=== PATIENT | female | born 1995 | race African-American/Black ===

== ENCOUNTER 2021-12-25 20:20 | Emergency (ER) | payer OTHER, SELFPAY ==
[2021-12-25 20:26] VITALS: BP 101/69; PULSE 89; RESP 16; TEMP 37; O2SAT 100
--- NOTE | 2021-12-25 20:55 | ED.URI ---
HPI - URI/Sore Throat General Chief Complaint: Upper Respiratory Infection Stated Complaint: sore throat, runny nose Time Seen by Provider: 12/25/21 20:29 History of Present Illness HPI Narrative: Patient is a 26-year-old female here for evaluation of upper respiratory infection symptoms for the past week. Patient states that she has had a sore throat and rhinorrhea, unrelieved by OTC medications. She did take a home COVID test immediately upon symptom onset that was negative. She has been tolerating her secretions but does note that it is painful when she swallows. she denies any cough, fevers, chills, drooling. Additionally reporting dysuria and malodorous urine for the past several days. She states that she has had history of UTIs and this feels similar. Denies any hematuria, back pain, vaginal discharge. No new sexual partners. Related Data Allergies Allergy/AdvReac Type Severity Reaction Status Date / Time No Known Allergies Allergy Verified 12/25/21 20:39 Review of Systems Review of Systems: Gen: Denies fevers or chills Eyes: Denies eye pain or visual change ENT: Reports sore throat and congestion. Respiratory: Denies shortness of breath or cough CV: Denies chest pain or palpitations GI: Denies abdominal pain nausea, emesis or diarrhea reports burning and malodorous urine. Denies urgency, frequency or hematuria Musculoskeletal: Denies back pain or muscle pain Neuro: Denies numbness, tingling, weakness or focal weakness Skin: Denies rash Except as documented, all other systems reviewed and negative Exam Narrative: APPEARANCE: Well appearing, no pain in distress, well-nourished. Head: Normocephalic and atraumatic. EYES: PERRLA/EOMI, conjunctivae clear NOSE: No nasal drainage EARS: External ear normal in appearance THROAT: Oropharynx is clear. Mucous membranes are moist. NECK: Supple. No adenopathy, no masses. No thyromegaly. RESPIRATORY: Airway patent, respirations nonlabored. Clear to auscultation bilaterally, no rales, rhonchi, wheezing. CARDIOVASCULAR: Regular rate and rhythm without murmurs, rubs, or gallops. ABDOMINAL: Normoactive bowel sounds. Soft, nontender, nondistended. No rebound tenderness or guarding. MUSCULOSKELETAL: Extremities are warm and well-perfused. Moves all extremities well. No edema. NEURO: Normal speech. No focal neurologic deficits. SKIN: Skin is warm and dry. No rashes. PSYCHIATRIC: Normal affect/mood. Course Vital Signs Vital signs: Vital Signs Temperature 98.6 F 12/25/21 20:26 Pulse Rate 89 12/25/21 20:26 Respiratory Rate 16 12/25/21 20:26 Blood Pressure 101/69 12/25/21 20:26 Pulse Oximetry 100 12/25/21 20:26 Oxygen Delivery Room Air 12/25/21 20:26 Temperature 98.6 F 12/25/21 20:26 Pulse Rate 85 12/25/21 23:14 Respiratory Rate 16 12/25/21 23:14 Blood Pressure 105/65 12/25/21 23:14 Pulse Oximetry 99 12/25/21 23:14 Oxygen Delivery Room Air 12/25/21 20:35 MDM - URI/Sore Throat MDM Narrative Medical decision making narrative: 26-year-old female here for evaluation of a sore throat, runny nose, urinary symptoms for the past few days. Here she is nontoxic-appearing with normal vital signs and is tolerating her secretions. No erythema of posterior oropharynx lymphadenopathy, strep and COVID test negative. Symptoms improved after medication in the ED. Likely upper respiratory infection. additionally, she was found to have a UTI with white blood cells, nitrates, leuks and bacteria. No back pain or fever to suggest pyelonephritis. test is negative, will treat with Macrobid as outpatient. She was given reasons to return to the ED and she voiced understanding. Lab Data Labs: Lab Results 12/25/21 12/25/21 12/25/21 Range/Units 21:25 21:25 21:25 Urine Color Yellow (Yellow) Urine Appearance Slightly cloudy (Clear) Urine pH 7.0 (5.0-9.0) Ur Specific [place] 1.025 (1.001-1.035) Urine Protein Negat
--- NOTE | 2021-12-25 21:38 | PC.NURSE ---
Unable to perform Rapid strep test due to no reagent 1. Called lab sent down to perform and Shyanne Reid was made aware.
[2021-12-25] MEDS: IBUPROFEN 600 MG TABLET PO (22:12)
[2021-12-25] MEDS: predniSONE 20 MG TABLET 40 MG PO (22:13)
[2021-12-25 22:21] LABS: SARS-CoV-2 RNA PCR Negative
[2021-12-25 22:36] LABS: Appearance Urine Slightly Cloudy (Clear); Bilirubin Urine Negative (Negative); Color Urine Yellow (Yellow); Glucose Urine UA Negative (Negative); Ketones Urine Negative (Negative); Leukocyte Esterase Ur Trace LEU/UL (Negative); Nitrate Urine Positive (Negative); Protein Urine Negative (Negative); Specific Grav Ur 1.025 (1.001-1.035); Urobilinogen Urine 0.2 mg/dL (<2.0)
[2021-12-25 22:38] LABS: Bacteria Urine 1+ /hpf; Mucus Urine Rare /lpf; Squamous Epithelial Cell Urine Few /hpf (Few); WBC Urine 16-20 /hpf
[2021-12-25 22:43] LABS: Add Urine Microscopic? YES; Blood Urine Trace (Negative)
[2021-12-25 23:14] VITALS: BP 105/65; PULSE 85; RESP 16; O2SAT 99
[2021-12-25 23:30] LABS: Pregnancy On Board Control Positive; Urine Pregnancy Test Negative
== END 2021-12-25 23:16 | disposition home or self-care (01) ==
PROVIDERS: Physician Assistant; Emergency Provider Emergency Medicine; PCP Pediatrics
DX: N39.0 Urinary tract infection, site not specified (principal); J06.9 Acute upper respiratory infection, unspecified; Z20.822 Contact with and (suspected) exposure to COVID-19
CPT/HCPCS: 36415; 81001; 81025; 87077; 87081; 87086; 87088; 87186; 87880; 99283; A9270; C9803; J7512; U0003; U0005

== ENCOUNTER 2022-01-18 18:43 | Emergency (ER) | payer OTHER, SELFPAY ==
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
[2022-01-18 18:44] VITALS: BP 122/84; PULSE 87; RESP 16; TEMP 36.6; O2SAT 99
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
[2022-01-18 19:40] VITALS: BP 105/74; PULSE 87; RESP 20; O2SAT 100
== END 2022-01-18 19:52 | disposition home or self-care (01) ==
PROVIDERS: Emergency Provider Emergency Medicine; PCP Family Medicine
DX: S46.812A Strain of other muscles, fascia and tendons at shoulder and upper arm level, left arm, initial encounter (principal); V47.5XXA Car driver injured in collision with fixed or stationary object in traffic accident, initial encounter
CPT/HCPCS: 73030; 99283; A4565

== ENCOUNTER 2023-01-19 11:15 | Emergency (ER) | payer OTHER, SELFPAY ==
--- NOTE | ~2023-01-19 | XR_ITS ---
XR shoulder RT min 2V DATE: 01/19/2023 12:23 INDICATION: Pain when moving shoulder. No injury. TECHNIQUE: 4 views COMPARISON: None FINDINGS: Elongated right and left C7 transverse processes. Levoscoliosis of the upper thoracic spine. Normal alignment at the acromioclavicular and glenohumeral joints. No fracture, dislocation, perioste al reaction or bone destruction or abnormal soft tissue calcification of the right shoulder. IMPRESSION: Negative right shoulder Elongated right and left C7 transverse processes Reviewed, dictated and finalized at location B.
--- NOTE | ~2023-01-19 | XR_ITS ---
XR finger 2nd RT min 2V DATE: 01/19/2023 12:23 INDICATION: Right second digit pain TECHNIQUE: 3 views COMPARISON: None FINDINGS: No fracture or dislocation, periosteal reaction or bone destruction, erosive change or sign ificant joint space narrowing. No radiopaque soft tissue foreign body or subcutaneous emphysema. IMPRESSION: Negative Reviewed, dictated and finalized at location B. IMPRESSION: Negative
[2023-01-19 11:25] VITALS: BP 102/70; PULSE 76; RESP 18; TEMP 36.8; O2SAT 100
--- NOTE | 2023-01-19 12:11 | PC.NURSE ---
pt taken to xray at this time
--- NOTE | 2023-01-19 12:21 | PC.NURSE ---
pt returned to room 18 from xray at this time
--- NOTE | 2023-01-19 13:52 | ED.UPPEXIN ---
HPI - Extremity Injury (Upper) General Chief Complaint: Extremity Injury, Upper Stated Complaint: R pointer finger pain, R shoulder pain Time Seen by Provider: 01/19/23 12:24 Source: patient Mode of arrival: ambulatory Limitations: no limitations History of Present Illness HPI narrative: This is a 27-year-old female that presents to the emergency department for right shoulder pain and right second finger pain. Both of these have been ongoing for several months. She takes [id number] pain medication with some relief. She has not been evaluated for this yet. There was no known injury or trauma. Reports decreased ROM in the right 2nd finger and feels like it catches. 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 Denies fever, erythema, edema, decreased range of motion in the shoulder, or numbness. Related Data Allergies Allergy/AdvReac Type Severity Reaction Status Date / Time No Known Allergies Allergy Verified 12/25/21 20:39 Review of Systems Review of Systems: CONSTITUTIONAL: Denies fever SKIN: Denies rash MUSCULOSKELETAL: Reports joint pain, and myalgia. NEUROLOGIC: Denies numbness, or weakness. All systems reviewed & are unremarkable except as noted in HPI and below Exam Narrative: GENERAL: Well-appearing, well-nourished, and in no acute distress. HEAD: Normocephalic, atraumatic. EYES: EOMI. CHEST: Clear to auscultation. No respiratory distress. No wheezes rales or rhonchi HEART: Regular rate and rhythm. No murmur heard. Normal peripheral pulses. EXTREMITIES: Normal range of motion, except decreased active ROM in the right 2nd finger due to pain. No edema, obvious deformity or erythema. Normal radial pulse. Normal sensation. Normal capillary refill SKIN: Warm, dry, no rash. NEURO: No focal deficits. Alert and oriented x3. PSYCH: Normal mood and affect Course Course Emergency Course: Patient was updated on work-up and agrees with plan of care Vital Signs Vital signs: Vital Signs Temperature 98.3 F 01/19/23 11:25 Pulse Rate 76 01/19/23 11:25 Respiratory Rate 18 01/19/23 11:25 Blood Pressure 102/70 01/19/23 11:25 Pulse Oximetry 100 01/19/23 11:25 Temperature 98.3 F 01/19/23 11:25 Pulse Rate 76 01/19/23 11:25 Respiratory Rate 18 01/19/23 11:25 Blood Pressure 102/70 01/19/23 11:25 Pulse Oximetry 100 01/19/23 11:25 MDM - Extremity Injury (Upper) MDM Narrative Medical decision making narrative: Patient presents to the ER for right shoulder pain ongoing over the last several months. No recent injury or trauma. She is neurovascularly intact. Right shoulder x-ray without acute osseous abnormalities. Patient also reporting some right second finger pain. Reports decreased active range of motion due to pain. Reports feelings of it catching when she bends it. No injury in the finger. Right second finger x-ray without acute osseous abnormalities. Patient was placed in a splint for comfort. Was instructed to follow-up with orthopedics for her shoulder and hand surgery for her finger. She was given warnings to return to the ER Differential Diagnosis Differential diagnosis: Likely finger sprain and other (shoulder sprain, rotator cuff pathology) Imaging Data Radiologist's impression: ITS Impressions Finger X-Ray 01/19/23 12:24 IMPRESSION: Negative Shoulder X-Ray 01/19/23 12:24 IMPRESSION: Negative right shoulder Elongated right and left C7 transverse processes Critical Care Time Critical Care Time Critical Care Time: No Discharge Plan Discharge Clinical Impression: Finger pain, right Chronic shoulder pain Qualifiers: Laterality: right Qualified Code(s): M25.511 - Pain in right shoulder Patient Disposition: Home, Self-Care Condition: Stable Instructions: Arthralgia (ED), Shoulder Pain (ED) Additional Instructions: Return to the ER if you experience fever, weakness, numbness, redn
[2023-01-19 14:05] VITALS: BP 109/66; PULSE 72; RESP 18; O2SAT 100
== END 2023-01-19 14:05 | disposition home or self-care (01) ==
PROVIDERS: Emergency Provider Physician Assistant; PCP Family Medicine
DX: M25.511 Pain in right shoulder (principal); M79.644 Pain in right finger(s)
CPT/HCPCS: 29130; 73030; 73140; 99284

== ENCOUNTER 2023-02-25 13:51 | Emergency (ER) | payer OTHER, SELFPAY ==
[2023-02-25 14:05] VITALS: BP 112/58; PULSE 80; RESP 18; TEMP 36.7; O2SAT 99
[2023-02-25 14:28] VITALS: BP 110/68; PULSE 77; RESP 17; O2SAT 100
--- NOTE | 2023-02-25 14:52 | ED.PREGNANCY ---
HPI - General Chief complaint: Vaginal Bleeding Stated complaint: vaginal bleeding Time Seen by Provider: 02/25/23 14:19 Source: patient Mode of arrival: ambulatory Limitations: no limitations History of Present Illness HPI Narrative: Patient is a 27-year-old female presents the ED with report of vaginal bleeding. Patient reports she had an elective 3 weeks ago. She started her first menstrual cycle after the over this past weekend. She states the bleeding was light at first but became heavier today. She notes she went through 1-2 pads per hour today. She became concerned and prompted here. Patient sees an OBGYN in [place], Dr. Amor. She has not tried contacting him. She denies any dizziness, lightheadedness, abdominal pain aside from mild cramping, nausea, vomiting, syncope, fevers. Related Data Allergies Allergy/AdvReac Type Severity Reaction Status Date / Time No Known Allergies Allergy Verified 01/20/23 09:08 Review of Systems Review of Systems: CONSTITUTIONAL: Denies fever, chills, or sweats. CARDIOVASCULAR: Denies chest pain. RESPIRATORY: Denies dyspnea. GASTROINTESTINAL: See HPI. GENITOURINARY: See HPI. SKIN: Denies rash or itching. NEUROLOGIC: Denies dizziness, lightheadedness, headache, numbness, or weakness. All systems reviewed & are unremarkable except as noted in HPI and below PMFSH Social History Social History Smoking status: Never smoker Exam Narrative: GENERAL: Well appearing, well-nourished, non-toxic, in no acute distress. HEAD: Normocephalic, atraumatic. NECK: Supple. No adenopathy, no masses. RESPIRATORY: Airway patent, respirations nonlabored. Clear to auscultation bilaterally, no rales, rhonchi, wheezing. CARDIOVASCULAR: Regular rate and rhythm without murmurs, rubs, or gallops. Radial pulses 2+ and equal bilaterally. ABDOMINAL: Soft, no significant tenderness throughout abdomen, nondistended, no hepatosplenomegaly. Normoactive BS. PELVIC: Normal external genitalia. Moderate amount of bright red vaginal bleeding present in vaginal vault. Able to clear with several long Q-tips. Cervix appears normal. No evidence of retained products or tissue coming from cervical os. No evidence of hemorrhage or pooling of fluid. No significant CMT. MUSCULOSKELETAL: Moves all extremities. Strength/ROM intact without gross deformities. SKIN: Warm, dry, normal color. No rashes. NEURO: A&O X3. Speech clear. Cranial nerves II-XII grossly intact. Steady gait. No ataxic movements. PSYCHIATRIC: Appropriate mood and affect. Normal interaction. Course Vital Signs Vital signs: Vital Signs Temperature 98.1 F 02/25/23 14:05 Pulse Rate 80 02/25/23 14:05 Respiratory Rate 18 02/25/23 14:05 Blood Pressure 112/58 L 02/25/23 14:05 Pulse Oximetry 99 02/25/23 14:05 Temperature 98.1 F 02/25/23 14:05 Pulse Rate 82 02/25/23 17:00 Respiratory Rate 17 02/25/23 17:00 Blood Pressure 101/70 02/25/23 17:00 Pulse Oximetry 100 02/25/23 17:00 MDM - OB/Uterine Contractions MDM Narrative Medical decision making narrative: Patient presented to ED with abnormal heavy bleeding, history of elective medical 3 weeks ago. Patient's vital stable upon arrival. She is not in any distress. No significant pain noted. CBC with stable H&H, hemoglobin 12.8. UA with lots of blood, 6-10 WBC, no urine bacteria seen. Sent for culture. Patient denying urinary symptoms. Likely contamination. Pelvic exam did show a moderate amount of vaginal bleeding in vaginal vault, no significant clots. Able to clear bleeding with long Q-tips. No evidence of hemorrhage or pooling of fluid. Discussed reassuring labs and exam with patient. She is seen by Dr. Schroeder, an FOOD AND BEVERAGE LEAD at [facility]. I discussed case with Dr. Schroeder, advised can start patient on oral BCP today and have her f/u in office.
[2023-02-25 15:29] LABS: Basophils Percent Auto 0.5 % (0.2-1.2); Eosinophils Absolute Auto 0.1 K/mm3 (0-0.3); Eosinophils Percent Auto 1.9 % (0-4.4); Hematocrit 40.6 % (37.0-47.0); Hemoglobin 12.8 g/dL (12.0-15.0); Immature Granulocyte Absolute 0.02 K/mm3 (0.00-0.031); Immature Granulocyte Percent A 0.3 % (0-0.5); Lymphocytes Absolute Auto 2.23 K/mm3 (0.9-3.2); Lymphocytes Percent Auto 35.8 % (18.3-44.2); Mean Corpuscular HGB Conc 31.5 g/dl (32-36); Mean Corpuscular Hemoglobin 27.9 pg (26-34); Mean Corpuscular Volume 88.6 fl (80-100); Monocytes Absolute Auto 0.5 K/mm3 (0.1-0.6); Monocytes Percent Auto 8.7 % (2.6-8.5); Neutrophils Absolute Auto 3.3 K/mm3 (1.3-6.7); Neutrophils Percent Auto 52.8 % (45.5-73.1); Platelet Count Result 284 k/mm3 (150-375); Red Blood Count 4.58 M/mm3 (4.2-5.4); Red Cell Distribution Width 13.7 % (11.5-14.5); White Blood Count 6.2 K/mm3 (4.5-10.0)
[2023-02-25 15:33] LABS: Appearance Urine Cloudy (Clear); Bilirubin Urine Negative (Negative); Blood Urine 3+ (Negative); Color Urine Red (Yellow); Glucose Urine UA Negative (Negative); Ketones Urine Negative (Negative); Leukocyte Esterase Ur Negative LEU/UL (Negative); Nitrate Urine Negative (Negative); Protein Urine 1+ mg/dL (Negative); pH Urine 8.5 (5.0-9.0)
[2023-02-25 15:35] LABS: Bacteria Urine None Seen /hpf; Non Pathogenic Casts 0-2; RBC Urine >100 /hpf (0-2); Squamous Epithelial Cell Urine Occasional /hpf (Few)
[2023-02-25 15:54] LABS: Add Urine Microscopic? YES
[2023-02-25 17:00] VITALS: BP 101/70; PULSE 82; RESP 17; O2SAT 100
== END 2023-02-25 17:01 | disposition home or self-care (01) ==
PROVIDERS: Emergency Provider Physician Assistant; PCP Family Medicine
DX: N93.8 Other specified abnormal uterine and vaginal bleeding (principal)
CPT/HCPCS: 36415; 81001; 81025; 85025; 87077; 87086; 87088; 99284

== ENCOUNTER 2023-07-29 12:14 | Outpatient (CLI) | payer OTHER, SELFPAY ==
--- NOTE | 2023-07-29 | ECG_ITS ---
Measurements Intervals [place] Rate: 78 P: 65 [place]: 164 QRS: 27 QRSD: 93 T: 39 QT: 360 QTc: 412 Interpretive Statements SINUS RHYTHM WITH MARKED SINUS ARRHYTHMIA BASELINE ARTIFACT- III NORMAL ECG NO PREVIOUS ECG AVAILABLE FOR COMPARISON Electronically Signed On 07-29-2023 13:31:20 SINGLE NEEDLE OPERATOR by Santino Hsu D.O.
--- NOTE | ~2023-07-29 | XR_ITS ---
EXAMINATION: XR chest 2V DATE: 07/29/2023 13:20 INDICATION: Smoking. Preop. TECHNIQUE: Frontal and lateral views of the chest were obtained. COMPARISON: None. FINDINGS: There is no pneumonia, pleural effusion, or pneumothorax. The heart size is normal. IMPRESSION: 1. No acute cardiopulmonary disease. Reviewed, dictated and finalized at location E. E M ASSEMBLER
== END 2023-07-29 12:15 | disposition home or self-care (01) ==
LOC: ANHLAB 13:02 → ANHIMG 13:04
PROVIDERS: PCP Family Medicine
DX: Z01.818 Encounter for other preprocedural examination (principal); R94.31 Abnormal electrocardiogram [ECG] [EKG]
CPT/HCPCS: 71046; 93005

== ENCOUNTER 2023-12-11 10:34 | Emergency (ER) | payer OTHER, SELFPAY ==
[2023-12-11 10:35] VITALS: BP 112/74; PULSE 77; RESP 16; TEMP 36.4; O2SAT 99
[2023-12-11 11:10] LABS: Appearance Urine Cloudy (Clear); Bacteria Urine 3+ /hpf; Bilirubin Urine Negative (Negative); Blood Urine Trace (Negative); Color Urine Yellow (Yellow); Glucose Urine UA Negative (Negative); Ketones Urine Negative (Negative); Leukocyte Esterase Ur 2+ LEU/UL (Negative); Nitrate Urine Positive (Negative); Non Pathogenic Casts 0-2; Protein Urine Negative (Negative); Specific Grav Ur 1.025 (1.001-1.035); Squamous Epithelial Cell Urine Moderate /hpf (Few); WBC Urine 51-100 /hpf (0-3)
[2023-12-11 11:23] LABS: Add Urine Microscopic? YES
--- NOTE | 2023-12-11 12:01 | ED.FEMALEGU ---
HPI - Female Genitourinary General Chief complaint: Urogenital-Female Stated complaint: uti Time Seen by Provider: 12/11/23 10:46 History of Present Illness HPI Narrative: 28-year-old female presents to the emergency room for evaluation of dysuria and urinary frequency. Denies abdominal pain, back pain or flank pain or fevers. States has had symptoms for 7 days. Related Data Allergies Allergy/AdvReac Type Severity Reaction Status Date / Time No Known Allergies Allergy Verified 08/07/23 07:41 Review of Systems Review of Systems: ROS unremarkable except for noted in HPI PMFSH Social History Social History Smoking status: Never smoker Exam Narrative: GENERAL: Well-appearing, well-nourished, no physical limitations, and in no acute distress. HEAD: Normocephalic, atraumatic. EYES: Conjunctivae normal, PERRLA and EOMI. CHEST: Clear to auscultation. No respiratory distress. No wheezes rales or rhonchi. HEART: Regular rate and rhythm. No murmur heard. Normal peripheral pulses. ABDOMEN: Soft, nontender, nondistended, normal active bowel sounds. BACK: No CVA tenderness; EXTREMITIES: Normal range of motion. No edema. No clubbing or cyanosis SKIN: Warm, dry, no rash. No noted wounds NEURO: No focal deficits. Alert and oriented x3. MAEW. CN's II-XI intact bilaterally, normal gait PSYCH: Cooperative. Normal mood and affect. Course Vital Signs Vital signs: Vital Signs Temperature 36.4 C 12/11/23 10:35 Pulse Rate 77 12/11/23 10:35 Respiratory Rate 16 12/11/23 10:35 Blood Pressure 112/74 12/11/23 10:35 Pulse Oximetry 99 12/11/23 10:35 Temperature 36.4 C 12/11/23 10:35 Pulse Rate 77 12/11/23 10:35 Respiratory Rate 16 12/11/23 10:35 Blood Pressure 112/74 12/11/23 10:35 Pulse Oximetry 99 12/11/23 10:35 MDM - Female Genitourinary Lab Data Labs: Lab Results 12/11/23 Range/Units 10:53 Urine Color Yellow (Yellow) Urine Appearance Cloudy H (Clear) Urine pH 6.0 (5.0-9.0) Ur Specific [place] 1.025 (1.001-1.035) Urine Protein Negative (Negative) mg/dL Urine Glucose (UA) Negative (Negative) mg/dL Urine Ketones Negative (Negative) mg/dL Ur Blood (Man) Trace (Negative) Urine Nitrate Positive H (Negative) Urine Bilirubin Negative (Negative) Urine Urobilinogen 1.0 (<2.0) mg/dL Leukocyte Esterase Rfl 2+ H (Negative) BRAYDON/UL Urine RBC 3-5 H (0-2) /hpf Urine WBC 51-100 H (0-3) /hpf Ur Squamous Epith Cells Moderate (Few) /hpf Urine Bacteria 3+ H /hpf Urine Casts 0-2 Discharge Plan Discharge Clinical Impression: Urinary tract infection Patient Disposition: Home, Self-Care Condition: Stable Instructions: Antibiotic Form, Urinary Tract Infection in Women (ED) Prescriptions: New nitrofurantoin monohyd/m-cryst [Macrobid] 100 mg capsule 100 mg PO Q12H 5 Days Qty: 10 0RF Rx Instructions: must administer with a meal/food Follow-up/Referrals: Raisa Chi APRN [Primary Care Provider] - Time of Disposition: 12:03
[2023-12-11 12:09] VITALS: BP 137/72; PULSE 82; RESP 17; TEMP 36.5; O2SAT 99
== END 2023-12-11 12:11 | disposition home or self-care (01) ==
PROVIDERS: Emergency Provider Nurse Practitioner Family; PCP Nurse Practitioner Family
DX: N39.0 Urinary tract infection, site not specified (principal)
CPT/HCPCS: 81001; 81025; 87077; 87086; 87088; 87186; 99283

== ENCOUNTER 2024-01-30 11:06 | Emergency (ER) | payer OTHER, SELFPAY ==
[2024-01-30 11:18] VITALS: BP 103/72; PULSE 80; RESP 16; TEMP 36.4; O2SAT 96
[2024-01-30 11:44] LABS: Add Urine Microscopic? YES; Appearance Urine Clear (Clear); Bacteria Urine 1+ /hpf; Bilirubin Urine Negative (Negative); Blood Urine 1+ (Negative); Color Urine Yellow (Yellow); Glucose Urine UA Negative (Negative); Ketones Urine Negative (Negative); Leukocyte Esterase Ur 1+ LEU/UL (Negative); Nitrate Urine Positive (Negative); Non Pathogenic Casts 0-2; Protein Urine Negative (Negative); RBC Urine 0-2 /hpf (0-2); Specific Grav Ur 1.021 (1.001-1.035); Squamous Epithelial Cell Urine Occasional /hpf (Few); WBC Urine 51-100 /hpf (0-3); pH Urine 6.5 (5.0-9.0)
[2024-01-30 13:50] LABS: BEDSIDEPREGUCG Negative (Negative)
--- NOTE | 2024-01-30 13:52 | PC.NURSE ---
Pt called to go back to a room, no answer
== END 2024-01-30 14:12 | disposition left against medical advice (07) ==
LOC: ANHED 13:55
PROVIDERS: Emergency Provider Student in an Organized Health Care Education/Training Program; PCP Nurse Practitioner Family
DX: R35.0 Frequency of micturition (principal)
CPT/HCPCS: 81001; 81025; 87077; 87086; 87088; 87147; 87186; 99199

== ENCOUNTER 2024-02-03 08:52 | Emergency (ER) | payer OTHER, SELFPAY ==
[2024-02-03 08:58] VITALS: BP 121/73; PULSE 81; RESP 15; TEMP 36.6; O2SAT 100
[2024-02-03 09:25] LABS: BEDSIDEPREGUCG Negative (Negative)
[2024-02-03 09:28] LABS: Add Urine Microscopic? YES; Appearance Urine Turbid (Clear); Bacteria Urine 1+ /hpf; Bilirubin Urine Negative (Negative); Blood Urine Non-Hemolyzed Trace (Negative); Color Urine Yellow (Yellow); Glucose Urine UA Negative (Negative); Ketones Urine Negative (Negative); Leukocyte Esterase Ur 2+ LEU/UL (Negative); Nitrate Urine Negative (Negative); Non Pathogenic Casts 0-2; Protein Urine Negative (Negative); Specific Grav Ur 1.022 (1.001-1.035); Squamous Epithelial Cell Urine None Seen /hpf (Few); WBC Urine >100 /hpf (0-3); pH Urine 6.5 (5.0-9.0)
--- NOTE | 2024-02-03 10:03 | ED.GENADULT ---
HPI - General Adult General Chief complaint: Urogenital-Female Stated complaint: uti symptoms Time Seen by Provider: 02/03/24 09:16 History of Present Illness HPI narrative: Patient is a 28-year-old female who presents here with UTI symptoms. Reports she has foul-smelling urine that is darker in color. No fevers or chills or sweats. No flank pain or abdominal pain. Denies vaginal bleeding or discharge. She saw on the online portal that her urine was in fact infected and she would like antibiotics. Urine culture shows that she is growing E coli as well as group B strep. Related Data Allergies Allergy/AdvReac Type Severity Reaction Status Date / Time No Known Allergies Allergy Verified 01/30/24 11:20 Review of Systems Constitutional: Constitutional: Reports no additional constitutional complaints Gastrointestinal: Gastrointestinal: Reports no additional gastrointestinal complaints Genitourinary: Genitourinary: Reports no additional female genitourinary complaints PMFSH Past Medical History Medical History (Updated 02/03/24 @ 10:09 by Vince Mendoza MD) Healthy female adult Social History Social History Smoking status: Never smoker Exam Narrative: GENERAL: Well-appearing, well-nourished, and in no acute distress. HEAD: Normocephalic, atraumatic. ENT: Mucous membranes moist. CHEST: Clear to auscultation. No respiratory distress. HEART: Regular rate and rhythm. Normal peripheral pulses. ABDOMEN: Soft, nontender, nondistended. EXTREMITIES: Normal range of motion. No edema. NEURO: Alert and oriented x3. PSYCH: Normal mood and affect. Course Course Emergency Course: Discharge home with Bactrim which both isolates are sensitive to. Vital Signs Vital signs: Vital Signs Temperature 98 F 02/03/24 08:58 Pulse Rate 81 02/03/24 08:58 Respiratory Rate 15 02/03/24 08:58 Blood Pressure 121/73 02/03/24 08:58 Pulse Oximetry 100 02/03/24 08:58 Oxygen Delivery Room Air 02/03/24 08:58 Temperature 98 F 02/03/24 08:58 Pulse Rate 81 02/03/24 08:58 Respiratory Rate 15 02/03/24 08:58 Blood Pressure 121/73 02/03/24 08:58 Pulse Oximetry 100 02/03/24 08:58 Oxygen Delivery Room Air 02/03/24 08:58 Medical Decision Making Vital Signs Vital Signs: Vital Signs Temperature 98 F 02/03/24 08:58 Pulse Rate 81 02/03/24 08:58 Respiratory Rate 15 02/03/24 08:58 Blood Pressure 121/73 02/03/24 08:58 Pulse Oximetry 100 02/03/24 08:58 Oxygen Delivery Room Air 02/03/24 08:58 Temperature 98 F 02/03/24 08:58 Pulse Rate 81 02/03/24 08:58 Respiratory Rate 15 02/03/24 08:58 Blood Pressure 121/73 02/03/24 08:58 Pulse Oximetry 100 02/03/24 08:58 Oxygen Delivery Room Air 02/03/24 08:58 Lab Data Labs: Lab Results 02/03/24 02/03/24 Range/Units 09:14 09:20 Urine Color Yellow (Yellow) Urine Appearance Turbid H (Clear) Urine pH 6.5 (5.0-9.0) Ur Specific [place] 1.022 (1.001-1.035) Urine Protein Negative (Negative) mg/dL Urine Glucose (UA) Negative (Negative) mg/dL Urine Ketones Negative (Negative) mg/dL Ur Blood (Man) Non-hemolyzed trace H (Negative) Urine Nitrate Negative (Negative) Urine Bilirubin Negative (Negative) Urine Urobilinogen 1.0 (<2.0) mg/dL Leukocyte Esterase Rfl 2+ H (Negative) BRAYDON/UL Urine RBC 3-5 H (0-2) /hpf Urine WBC >100 H (0-3) /hpf Ur Squamous Epith Cells None seen (Few) /hpf Urine Bacteria 1+ H /hpf Urine Casts 0-2 POC Urine HCG, Qual Negative (Negative) Discharge Plan Discharge Clinical Impression: UTI (urinary tract infection) Patient Disposition: Home, Self-Care Condition: Stable Instructions: Antibiotic Form, Urinary Tract Infection in Women (ED) Additional Instructions: You should return to the emergency department if you develop severe n
[2024-02-03 10:21] VITALS: RESP 16
== END 2024-02-03 10:22 | disposition home or self-care (01) ==
PROVIDERS: Emergency Provider Emergency Medicine; PCP Nurse Practitioner Family
DX: N39.0 Urinary tract infection, site not specified (principal)
CPT/HCPCS: 81001; 81025; 87077; 87086; 87088; 87186; 99283

== ENCOUNTER 2024-02-25 10:21 | Emergency (ER) | payer OTHER, SELFPAY ==
--- NOTE | ~2024-02-25 | XR_ITS ---
Left Shoulder Technique: AP and scapular Y views were obtained. Clinical History: Pain Findings: No fracture or dislocation is seen. Osseous alignment is anatomic. The glenohumeral and acr omioclavicular joint spaces are preserved. Soft tissues are unremarkable. Impression: Unremarkable left shoulder radiographs. Reviewed, dictated and finalized at [facility]. Impression: Unremarkable left shoulder radiographs.
[2024-02-25 10:30] VITALS: BP 124/76; PULSE 93; RESP 17; TEMP 36.5; O2SAT 100
[2024-02-25] MEDS: KETOROLAC 30 MG/ML VIAL (*BKC) IM (12:11)
[2024-02-25] MEDS: HYDROcodone/acetaminophen (*CRX) 5-325 MG TABLET 2 TAB PO (12:11)
--- NOTE | 2024-02-25 12:13 | ED.GENADULT ---
HPI - General Adult General Chief complaint: Extremity Injury, Upper Stated complaint: left shoulder injury Time Seen by Provider: 02/25/24 11:09 History of Present Illness HPI narrative: This is a 28-year-old female presenting with left arm pain. Patient was attempting to lift a large glass fireplace on her own when she has felt severe pain in her left shoulder. It is worse with movement. She has not taken anything for pain control. No weakness to the extremity. No history of shoulder dislocations Related Data Allergies Allergy/AdvReac Type Severity Reaction Status Date / Time No Known Allergies Allergy Verified 02/11/24 09:56 [facility] Past Medical History Medical History Healthy female adult Social History Social History Smoking status: Never smoker Exam Narrative: APPEARANCE: No apparent distress. Head: atraumatic. EYES: EOMI, NOSE: Atraumatic NECK: Trachea midline RESPIRATORY: No increased rate of breathing CARDIOVASCULAR: RRR, ABDOMINAL: Non-distended MUSCULOSKELETAl: Focal exam of the lift shoulder showed no bruising or deformities. Tenderness over the lateral deltoid. Pain with active and passive range of motion. Radial ulnar pulses intact. Chemical Inspector strength, Radian ulnar and median nerve motor distributions intact. Sensation light touch intact. NEURO: Alert. Moving 4/4 extremities SKIN:: Warm, dry. Normal color PSYCHIATRIC: Normal affect Course Vital Signs Vital signs: Vital Signs Temperature 97.7 F 02/25/24 10:30 Pulse Rate 93 02/25/24 10:30 Respiratory Rate 17 02/25/24 10:30 Blood Pressure 124/76 02/25/24 10:30 Pulse Oximetry 100 02/25/24 10:30 Oxygen Delivery Room Air 02/25/24 10:30 Temperature 97.7 F 02/25/24 10:30 Pulse Rate 93 02/25/24 10:30 Respiratory Rate 17 02/25/24 10:30 Blood Pressure 124/76 02/25/24 10:30 Pulse Oximetry 100 02/25/24 10:30 Oxygen Delivery Room Air 02/25/24 10:30 Medical Decision Making MDM Narrative Medical decision making narrative: -Course: 28-year-old female presenting with left shoulder pain after trying to lift heavy objects. Physical exam shows voluntary guarding but no overlying skin changes deformities or bruising. Neurovascularly intact. X-rays were negative. Patient be treated with a course of pain medication and given primary care follow-up. -DDX includes but is not limited to: Shoulder strain, shoulder dislocation, muscle spasm, rotator cuff injury -Independent interpretation of studies: Imaging reviewed -Interventions: [place] 5 mg, Toradol 30 mg IM -Shared decision making / Disposition:discharged. Vital Signs Vital Signs: Vital Signs Temperature 97.7 F 02/25/24 10:30 Pulse Rate 93 02/25/24 10:30 Respiratory Rate 17 02/25/24 10:30 Blood Pressure 124/76 02/25/24 10:30 Pulse Oximetry 100 02/25/24 10:30 Oxygen Delivery Room Air 02/25/24 10:30 Temperature 97.7 F 02/25/24 10:30 Pulse Rate 93 02/25/24 10:30 Respiratory Rate 17 02/25/24 10:30 Blood Pressure 124/76 02/25/24 10:30 Pulse Oximetry 100 02/25/24 10:30 Oxygen Delivery Room Air 02/25/24 10:30 Discharge Plan Discharge Clinical Impression: Acute shoulder pain Patient Disposition: Home, Self-Care Condition: Stable Instructions: Antibiotic Form, How to Use a Sling (ED), Arm Pain (ED) Additional Instructions: Your xrays do not show any broken bones. Please take Motrin Tylenol Robaxin for pain. Please use the sling as necessary but stop using as soon as you are able. Please follow-up your primary care physician for further management in 1 week. If you develop severe pain, or weakness in your arm return to the ED for evaluation. Prescriptions: New ibuprofen 800 mg tablet 800 mg PO TID PRN (Reason: pain) 7 Days Qty: 21 0RF acetaminophen 500 mg tablet
== END 2024-02-25 12:52 | disposition home or self-care (01) ==
PROVIDERS: Emergency Provider Emergency Medicine
DX: S49.92XA Unspecified injury of left shoulder and upper arm, initial encounter (principal); X50.0XXA Overexertion from strenuous movement or load, initial encounter
CPT/HCPCS: 73030; 96372; 99283; A4565; A9270; J1885

== ENCOUNTER 2024-04-04 19:06 | Emergency (ER) | payer OTHER, SELFPAY ==
--- NOTE | ~2024-04-04 | XR_ITS ---
HISTORY: left ankle injury COMPARISON: None TECHNIQUE: 4 views of the left ankle were performed FINDINGS: No acute fracture is identified. Lateral soft tissue swelling. The ankle mortise is intact. Bone mineralization is age-appropriate. IMPRESSION: Lateral soft tissue swelling without acute fracture or dislocation. Reviewed, dictated and finalized at location A. [employer]
[2024-04-04 19:09] VITALS: BP 123/70; PULSE 73; RESP 15; TEMP 36.8; O2SAT 100
--- NOTE | 2024-04-04 19:32 | ED_ITS ---
HPI - General Adult General Chief complaint: Extremity Injury, Lower Stated complaint: sprained ankle Time Seen by Provider: 04/04/24 19:18 History of Present Illness HPI narrative: patient is a 28-year-old female who presents emergency department chief complaint of left ankle pain. Patient reports that she rolled her ankle on Thursday reports that she has pain and swelling on the lateral aspect of her left ankle. Patient reports no pain in the foot denies pain at the base of the 5th metatarsal Related Data Allergies Allergy/AdvReac Type Severity Reaction Status Date / Time No Known Allergies Allergy Verified 02/11/24 09:56 Review of Systems Review of Systems: A 10 system review of systems was completed on the patient and is negative except for what is stated in the HPI. Nursing and ancillary documentation was reviewed. [facility] Past Medical History Medical History Healthy female adult Social History Social History Smoking status: Never smoker Exam Narrative: GENERAL: Well-appearing, well-nourished, and in no acute distress. HEAD: Normocephalic, atraumatic. EYES: PERRLA and EOMI. ENT: Nares clear, no rhinorrhea or epistaxis. Mucous membranes moist. NECK: Supple. CHEST: Clear to auscultation. No respiratory distress. HEART: Regular rate and rhythm. No murmur heard. Normal peripheral pulses. ABDOMEN: Soft, nontender, nondistended, normal active bowel sounds. EXTREMITIES: Normal range of motion in all extremities except for the left lower extremity. There is swelling present on the lateral malleolus and tenderness to palpation no deformity noted on exam there is no tenderness to palpation at the 5th metatarsal. No edema. SKIN: Warm, dry, no rash. NEURO: No focal deficits. Alert and oriented x3. PSYCH: Normal mood and affect. Course Vital Signs Vital signs: Vital Signs Temperature 36.8 C 04/04/24 19:09 Pulse Rate 73 04/04/24 19:09 Respiratory Rate 15 04/04/24 19:09 Blood Pressure 123/70 04/04/24 19:09 Pulse Oximetry 100 04/04/24 19:09 Oxygen Delivery Room Air 04/04/24 19:09 Temperature 36.8 C 04/04/24 19:09 Pulse Rate 73 04/04/24 19:09 Respiratory Rate 15 04/04/24 19:09 Blood Pressure 123/70 04/04/24 19:09 Pulse Oximetry 100 04/04/24 19:09 Oxygen Delivery Room Air 04/04/24 19:09 Medical Decision Making MDM Narrative Medical decision making narrative: differential diagnosis includes fracture, sprain plain film x-ray showed no evidence of fracture Vital Signs Vital Signs: Vital Signs Temperature 36.8 C 04/04/24 19:09 Pulse Rate 73 04/04/24 19:09 Respiratory Rate 15 04/04/24 19:09 Blood Pressure 123/70 04/04/24 19:09 Pulse Oximetry 100 04/04/24 19:09 Oxygen Delivery Room Air 04/04/24 19:09 Temperature 36.8 C 04/04/24 19:09 Pulse Rate 73 04/04/24 19:09 Respiratory Rate 15 04/04/24 19:09 Blood Pressure 123/70 04/04/24 19:09 Pulse Oximetry 100 04/04/24 19:09 Oxygen Delivery Room Air 04/04/24 19:09 Discharge Plan Discharge Clinical Impression: Left ankle sprain Patient Disposition: Home, Self-Care Condition: Stable Instructions: Antibiotic Form, Ankle Sprain (ED) Prescriptions: New ibuprofen 800 mg tablet 800 mg PO TID PRN (Reason: pain) Qty: 30 0RF No Action ibuprofen 800 mg tablet 800 mg PO TID PRN (Reason: pain) 7 Days Qty: 21 0RF acetaminophen 500 mg tablet 1,000 mg PO TID PRN (Reason: mat) 7 Days Qty: 42 0RF methocarbamol 750 mg tablet 1,500 mg PO TID Qty: 35 0RF Follow-up/Referrals: Jossue Zapata MD [Physician] - UNKNOWN,DOCTOR [Primary Care Provider] - Time of Disposition: 20:40
== END 2024-04-04 20:52 | disposition home or self-care (01) ==
PROVIDERS: Emergency Provider Emergency Medicine
DX: S93.402A Sprain of unspecified ligament of left ankle, initial encounter (principal); X58.XXXA Exposure to other specified factors, initial encounter
CPT/HCPCS: 73610; 99283

== ENCOUNTER 2024-10-26 08:56 | Emergency (ER) | payer OTHER, SELFPAY ==
--- NOTE | ~2024-10-26 | XR_ITS ---
EXAMINATION: XR chest 1V portable 10/26/2024 09:53 INDICATION: Chest tightness PROCEDURE: AP portable chest COMPARISON: 12/29/2023 FINDINGS: The lungs are clear. The cardiomediastinal silhouette is within normal limits. There are no pleural effusions. There is no pneumothorax suspected. IMPRESSION: 1: NO ACUTE CARDIOPULMONARY DISEASE. Reviewed, dictated and finalized at location A.
--- NOTE | 2024-10-26 08:58 | ECG_ITS ---
Test Date: 2024-10-26 09:04:18 Measurements Intervals [place] Rate: 87 P: 73 FL: 156 QRS: 30 QRSD: 89 T: 50 QT: 348 QTc: 419 Interpretive Statements SINUS RHYTHM BASELINE ARTIFACT- I, II, AVR, V5 NORMAL ECG No previous ECG available for comparison Electronically Signed On 10-26-2024 09:09:22 CDT by Santino Hsu D.O.
--- OUTSIDE RECORDS SUMMARY | 2024-10-26 09:04 | XMS_ITS | Clinical Summary ---
Author Organization [facility] Address [address] [address] Care Team Providers Care Wedding Transportation Driver Name Role Phone Unavailable Primary Care Provider Unavailabl e Source Comments [facility],non-owned Affiliates and Associated Physician Practices is amultiple site organization consisting of ambulatory clinics and hospital sitesin [place], [place], [place] and [place]. This disclosure is being madepursuant to the Care Everywhere program and may not contain all information available regarding this patient. 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 Gender Identity Not on file Sexual Orientation Not on file Plan of Treatment Health Maintenance Due Date Last Done Comments HIV SCREENING 2009 HEPATITIS C SCREENING 09/18/2012 DTAP/TDAP/TD VACCINES (1 - Tdap) 2013 HEPATITIS B VACCINE (1 of 3 - 19+ 3-dose series) 2013 COVID-19 VACCINE ( - 2023-2 5 season) 2024 DEPRESSION SCREENING 05/25/2024 INFLUENZA VACCINE (Season Ended) 2025 ZOSTER VACCINE (1 of 2) 2044 HIB VACCINE Aged Out No longer eligi ble based on patient's age to complete this topic HPV VACCINE Aged Out No longer eligi ble based on patient's age to complete this topic MENINGOCOCCAL (Group B) VACC INE SHARED DECISION-MAKING Aged Out No longer eligibl e based on patient's age to complete this topic MENINGOCOCCAL GROUPS A/C/Y/W VACCINE Aged Out No longer eligible b ased on patient's age to complete this topic PNEUMOCOCCAL VACCINE Aged Out No long er eligible based on patient's age to complete this topic Insurance [facility]
--- OUTSIDE RECORDS SUMMARY | 2024-10-26 09:04 | XMS_ITS | Data Portability ---
Author Organization Real [facility] Address [address] [facility] [place] [address] Assessment No assessment recorded. Plan of Treatment Reminders Order Date Submit Date Provider Last Modified By Organization Details Last Modified Time Details Appointments None recorded. Lab streptococc us group B, culture, unspecified specimen 2020 021 TOD CONCEPCION, Jenn charlie [place], [facility] [address], [place], [address], 1 16:09:00 HIV 1+2 AB + HIV 1 p24 Ag, qualitative immunoassay , serum 2020 021 TOD CONCEPCION, Jenn charlie [address], [address], [place], [address], 1 08:21:54 RPR (rapid plasma reagin), serum 2020 021 TOD CARLENE, [facility] [place], [address], [place], [address], 1 08:21:53 glucose tolerance test, gestational , 1-hour 2020 021 TOD CONCEPCION, Jenn [facility] [place], [address], [place], [address], 08:21:54 CBC w/ auto diff 2020 021 TOD CONCEPCION, [facility] [place], [address], [place], [address], 08:21:52 Referral None recorded. Procedures None recorded. Surgeries None recorded. Imaging None recorded. Medication Orders aspirin 81 mg chewable tablet 2020 021 [id number], [address], [place], [place], [id number], 17:52:39 Patient TargetsNo targets recorded. Patient Instructions Encounter Date Encounter Id Patient Instructions Last Modified By Organization Details Last Modified Time 10/12/2020 [id number] I was present an d available in the Family Medicine clinic to discuss this patient's care for the duration of the appointment. I agree with the resident's assessment and plan as documented with the following addendum: None. Dr. Won Kilogre MD Attending Physician, [facility]. [email or web address] Not available 10/15/2020 17:31:38 11/08/2020 [id number] I was present an d available in the Family Medicine clinic to discuss this patient's care during the appointment. I agree with the resident's assessment and plan as documented. SHERI Not available 11/08/2020 18:00:23 12/11/2020 [id number] I attest that I was available for evaluation and discussion of pt at time of appt. discussed with resident and reviewed note. concur with plan of care. [email or web address] Not available 12/11/2020 18:07:37 12/18/2020 [id number] I was present an d available in the Family Medicine clinic to discuss this patient's care during the appointment. I agree with the resident's assessment and plan as documented. SHERI [email or web address] Not available 12/19/2020 13:31:01 12/25/2020 [id number] I was present an d available in the Family Medicine clinic to discuss this patient's care during the appointment. I agree with the resident's assessment and plan as documented. [facility] [email or web address] Not available 01/02/2021 21:42:29 Reason for Referral None Reported. Results Created Date Observation Date Name Description Value Unit Range Abnormal Flag Note LastModifiedBy Organization Detail LastModifiedTime 11/06/1911/06/2020 CBC w/ auto diff WBC 8.8 x10e3 /uL 3.4-10 .8 Not Available [facility] ([facility]) [address] [facility], [place], [address], 11/06/2020 08:21:52 11/06/19 21 11/06/2020 CBC w/ auto diff RBC 3.66 x10e6 /uL 3.77-5 .28 below low normal Not Available [facility] ([facility]) [address] [facility], [place], [address], 11/06/2020 08:21:52 11/06/1911/06/2020 CBC w/ auto diff hemoglobin 10.5 g/dL 11.1-1 5.9 below low normal Not Available [facility] ([facility]) [address] [place], [address], 11/06/2020 08:21:52 11/06/1911/06/2020 CBC w/ auto diff hematocrit 31.5 % 34.0-4 6.6 below low normal Not Available [facility] ([facility]) [address] [place], [address], 11/06/2020 08:21:52 11/06/19 21 11/06/2020 CBC w/ auto diff MCV 86 fL 79-97 Not Available [facility] ([facility]) [address] [place], [address], 11/06/2020 08:21:52 11/06/1911/06/2020 CBC w/ auto diff MCH 28.7 pg 26.6-3 3.0 Not Available [facility] ([facility]) [address] [place], [address], 11/06/2020 08:21:52 11/06/1911/06/2020 CBC w/ auto diff MCHC 33.3 g/dL 31.5-3 5.7 Not Available [facility] ([facility]) [address] [facility], [place], [address], 11/06/2020 08:21:52 11/06/1911/06/2020 CBC w/ auto diff RDW 13.1 % 11.7-1 5.4 Not Available [facility] ([facility]) [address] [facility], [place], [address], 11/06/2020 08:21:52 11/06/19 21 11/06/2020 CBC w/ auto diff platelets 225 x10e3 /uL 150-45 0 Not Available [facility] ([facility]) [address] [facility], [place], [address], 11/06/2020 08:21:52 11/06/19 21 11/06/2020 CBC w/ auto diff neutrophils 70 % not estab. Not Available [facility] ([facility]) [address] [facility], [place], [address], 11/06/2020 08:21:52 11/06/1911/06/2020 CBC w/ auto diff lymphs 19 % not estab. Not Available [facility] ([facility]) [address] [facility], [place], [address], 11/06/2020 08:21:52 11/06/1911/06/2020 CBC w/ auto diff monocytes 6 % not estab. Not Available [facility] ([facility]) [address] [facility], [place], [address], 11/06/2020 08:21:52 11/06/1911/06/2020 CBC w/ auto diff eos 2 % not estab. Not Available [facility] ([facility]) [address] [facility], [place], [address], 11/06/2020 08:21:52 11/06/19 21 11/06/2020 CBC w/ auto diff basos 1 % not estab. Not Available [facility] ([facility]) [address] [facility], [place], [address], 11/06/2020 08:21:52 11/06/1911/06/2020 CBC w/ auto diff immature cells PETROLEUM SAMPLER Not Available [facility] ([facility]) [address] [place], [address], 11/06/2020 08:21:52 11/06/1911/06/2020 CBC w/ auto diff neutrophils (absolute) 6.2 x10e3 /uL 1.4-7. 0 Not Available [facility] ([facility]) [address] [place], [address], 11/06/2020 08:21:52 11/06/19 21 11/06/2020 CBC w/ auto diff lymphs (absolute) 1.7 x10e3 /uL 0.7-3. 1 Not Available [facility] ([facility]) [address] [place], [address], 11/06/2020 08:21:52 11/06/1911/06/2020 CBC w/ auto diff monocytes(ab solute) 0.6 x10e3 /uL 0.1-0. 9 Not Available [facility] ([facility]) [address] [place], [address], 11/06/2020 08:21:52 11/06/1911/06/2020 CBC w/ auto diff eos (absolute) 0.2 x10e3 /uL 0.0-0. 4 Not Available [facility] ([facility]) [address] [place], [address], 11/06/2020 08:21:52 11/06/1911/06/2020 CBC w/ auto diff baso (absolute) 0.1 x10e3 /uL 0.0-0. 2 Not Available [facility] ([facility]) [address] [place], [address], 11/06/2020 08:21:52 11/06/1911/06/2020 CBC w/ auto diff immature granulocytes 2 % not estab. Not Available [facility] ([facility]) [address] [facility], [place], [address], 11/06/2020 08:21:52 11/06/1911/06/2020 CBC w/ auto diff immature grans (abs) 0.1 x10e3 /uL 0.0-0. 1 Not Available [facility] ([facility]) [address] [facility], [place], [address], 11/06/2020 08:21:52 11/06/1911/06/2020 CBC w/ auto diff NRBC PETROLEUM SAMPLER Not Available [facility] ([facility]) [address] [facility], [place], [address], 11/06/2020 08:21:52 11/06/1911/06/2020 CBC w/ auto diff hematology comments: PETROLEUM SAMPLER Not Available [facility] ([facility]) [address] [facility], [place], [address], 11/06/2020 08:21:52 11/06/1911/06/2020 RPR (rapi d plasm a reagi n), serum RPR Non Reacti ve non reacti ve Not Available [facility] ([facility]) [address] [place], [address], 11/06/2020 08:21:53 11/06/1911/06/2020 HIV 1+2 AB + HIV 1 p24 Ag, quali tativ e immun oassa y, serum HIV screen 4TH generation wrfx Non Reacti ve non reacti ve Not Available [facility] ([facility]) [address] [facility], [place], [address], 11/06/2020 08:21:53 11/06/1911/06/2020 gluco se vonnie ance test, gesta ludwin l, 1-dat r gestational diabetes screen 112 mg/dL 65-135 Not Available [facility] ([facility]) [address], [place], [address], 11/06/2020 08:21:54 12/12/19 21 12/15/2020 STREP GP B CULTU RE strep gp B culture Positi ve negati ve abnormal Cente rs for Disea se Contr ol and Preve ntion ([facility]) and Ameri can Congr ess of Obste trici ans and Gynec ologi sts (ACOG ) guide lines for preve ntion of perin atal group B strep tococ tatiana (GBS) disea se speci fy co-co llect ion of a vagin al and recta l swab speci men to maxim ize sensi tivit y of GBS detec tion. Per the CDC and ACOG, swabb ing both the lower vagin a and rectu m subst antia lly incre ases the yield of detec tion urszula red with sampl ing the vagin a alone . Penic illin G, ampic illin , or cefaz jed are indic ated for intra partu m proph ylaxi s of perin atal GBS colon izati on. Refle x susce ptibi lity testi ng shoul d be perfo rmed prior to use of clind amyci n only on GBS isola bonnie from penic illin -obi rgic women who are consi dered a high risk for anaph ylaxi s. Treat ment with vanco mycin witho ut addit ional testi ng is warra nted if resis tance to clind amyci n is noted . Not Available [facility] ([facility]) [address], [place], [address], 12/15/2020 16:09:00 09/15/19 21 09/14/2020 US, obste tric, 2nd trime ster No observ ation record ed. [email or web address] [facility] Scheduling [address], [place], [address], 09/24/2020 13:06:18 Result Notes None recorded. 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 Procedures Surgical History Date Name Laterality Status Provider Name and Address Organization Details Recorded Time OB Ultrasound - 1st Trimester completed [facility] 06/08/2020 18:04:38 Imaging Results None recorded. Procedure Notes None recorded. Medical Equipment None Reported. Allergies No known drug allergies Medications Name Sig Start Date Stop Date Status Note LastModified by Organization Details LastModified Time status covid-19/flu a-b antigen tst TEST DIRECTED TODAY active Not Available Not Available No t Available cyclobenzapri ne 10 mg tablet TAKE 1 TABLET BY MOUTH TWICE A DAY NEEDED active Not Available Not Available No t Available fluconazole 150 mg tablet Take 1 tablet by oral route for 1 day. active Not Available Not Available N ot Available metronidazole 0.75 % (37.5 mg/5 gram) vaginal gel active Not Available Not Available Not Available metronidazole 500 mg tablet TAKE 1 TABLET BY MOUTH TWICE DAILY active Not Available Not Available No t Available aspirin 81 mg tablet,delaye d release Take 2 tablets every day by oral route for 30 days. active Not Available Not Available No t Available oxycodone-sandra taminophen 5 mg-325 mg tablet TAKE 1 TABLET BY MOUTH EVERY 4 HOURS NEEDED PAIN active Not Available Not Available No t Available famotidine 20 mg tablet active Not Available Not Available No t Available cephalexin 500 mg capsule TAKE 1 CAPSULE BY MOUTH FOUR TIMES A DAY active Not Available Not Available No t Available aspirin 81 mg chewable tablet Chew 2 tablets every day by oral route for 30 days. 2020 active Not Available Not Available Not Avai lable ibuprofen 600 mg tablet TAKE 1 TABLET BY MOUTH EVERY 6 HOURS NEEDED FOR PAIN active Not Available Not Available No t Available ondansetron 4 mg disintegratin g tablet DISSOLVE ONE TABLET BY MOUTH EVERY 6 HOURS NEEDED FORNAUSEA AND VOMITING active Not Available Not Available No t Available amoxicillin 875 mg-potassium clavulanate 125 mg tablet active Not Available Not Availabl e Not Available Cryselle (28) 0.3 mg-30 mcg tablet TAKE ONE TABLET BY MOUTH DAILY active Not Available Not Available No t Available nitrofurantoi n monohydrate/m acrocrystals 100 mg capsule TAKE 1 CAPSULE BY MOUTH EVERY 12 HOURS WITH FOOD FOR 5 DAYS active Not Available Not Available No t Available Vitals Date Recorded Body weight Provider Name an d Address Organization Details Last Updated DateTime 10/12/2020 80597.933041 g Jennyfer Sloan MD Attn: Accounting,[address] [place], [address], [facility] 12/24/2020 12:13:54 Date Recorded Body height Body mass index (BMI) Systolic blood pressure Diastolic blood pressure Provider Name and Address Organization Details Last Updated DateTime 10/12/2020 157.48 cm 27 kg/m2 110 mm[Hg] 62 mm[Hg] Michelle Mulligan MA [facility] 10/12/2020 12:28:45 Date Recorded Body weight Provider Name an d Address Organization Details Last Updated DateTime 11/08/2020 79198.669486 g Tamika Nevillediqui [facility] 10/23 17:53:56 Date Recorded Body height Body mass index (BMI) Systolic blood pressure Diastolic blood pressure Provider Name and Address Organization Details Last Updated DateTime 11/08/2020 157.48 cm 26.9 kg/m2 108 mm[Hg] 70 mm[Hg] Melly Millan MA [facility] 11/08/2020 17:24:13 Date Recorded Body weight Provider Name an d Address Organization Details Last Updated DateTime 12/11/2020 90828.544198 g Jennyfer Sloan MD Attn: Accounting,[address] [place], [address], [facility] 12/24/2020 12:13:54 Date Recorded Body height Body mass index (BMI) Systolic blood pressure Diastolic blood pressure Provider Name and Address Organization Details Last Updated DateTime 12/11/2020 157.48 cm 28.2 kg/m2 110 mm[Hg] 62 mm[Hg] Melly Millan [place] [facility] 12/11/2020 15:37:32 Date Recorded Body weight Provider Name an d Address Organization Details Last Updated DateTime 12/18/2020 29078.919236 g Jennyfer Sloan MD Attn: Accounting,[address] [place], [address], [place] - [facility] 12/24/2020 12:13:54 Date Recorded Body height Body mass index (BMI) Systolic blood pressure Diastolic blood pressure Provider Name and Address Organization Details Last Updated DateTime 12/18/2020 157.48 cm 27.9 kg/m2 106 mm[Hg] 62 mm[Hg] Ethel Marie MA [place] - [facility] 12/18/2020 17:14:40 Date Recorded Body weight Provider Name an d Address Organization Details Last Updated DateTime 12/25/2020 36959.372183 g Jennyfer Sloan MD Attn: Accounting,[address] [place], [address], [place] - [facility] 06/02/2021 17:13:23 Date Recorded Body height Body mass index (BMI) Systolic blood pressure Diastolic blood pressure Provider Name and Address Organization Details Last Updated DateTime 12/25/2020 157.48 cm 28.8 kg/m2 112 mm[Hg] 60 mm[Hg] TIMOTHY Aiken - [facility] 12/25/2020 17:26:13 Social History Question Answer Notes LastModified by Organizat ion Details LastModified Time Tobacco Smoking Status Never Smoker Ethel Marie MA null, [place] - [facility] 06/08/2020 15:34:47 What Was The Date Of Your Most Recent Tobacco Screening? 10/12/2020 [email or web address] Information not available 10/12/2020 How Much Tobacco Do You Smoke? No Information not available 06/08/2020 Sex: Unknown Functional Status Question Answer Note LastModified by Organizat ion Details LastModified Time Do you use any illicit or recreational drugs? No Information not available 09/07/2020 What is your level of alcohol consumption? None Information not available 09/07/2020 Do you or have you ever used smokeless tobacco? Never used smokeless tobacco Information not available 06/08/2020 Do you or have you ever used e-cigarettes or vape? Never used electronic cigarettes Information not available 06/08/2020 Mental Status None recorded. Family History Nothing Reported. Medical History No medical history recorded. Gynecological HistoryNo gynecological history recorded. Obstetrics History GPAL:G 2 P 2 0 0 1 Type Value Multiple Births 0 Full Term 2 Induced 0 Spontaneous 0 Premature 0 Living 1 Ectopics 0 Total 2 Immunizations Vaccine Type Date Status Note Provider Nam e and Address Organization Details Recorded Time Tdap 10/12/2020 completed Marguerite Scott RN [facility], [facility] 10/30/2020 13:27:03 Past Encounters Encounter ID Performer Location Encounter Start Date Encounter Closed Date Diagnosis/Indication Diagnosis SNOMED-CT Code Diagnosis ICD10 Code Diagnosis Note [id number] MD Og Knott [address] [address] 06/08/2020 15:22:55 06/13/2020 03:47:40 [id number] MD Og Knott 47 3 [facility] [address] [place] [address] 06/08/2020 15:24:51 06/12/2020 07:42:16 Possible 121587862 Z32.00 HCG positive Routine an tenatal care [id number] Z34.91 Prenatalyo # 1 2 3 4 5 6 7 8 9 female ANIVAL: [id number]# 2016 2017 2018 based on LMP and 1st trimester US# 1st trimester US 2nd trimester US 3rd trimester US LMP PMH: none complicate d by: none Rh: pending# p ositive ne gative : no IPN labs: ordered# n ormal abno rmal BMI 24: normal; Recommende d total weight gain during 25-35lbs (150-160 lb)# jin l 25-30 gr eater than 30 Depression screen: negative Flu shot: UTD# given declined to be given in season Dec-Jul 1st trimester US: normal - labs ordered- 1st trimester US showed SIUP, CRL 1.99 cm, 9w4d, ANIVAL 01/08/2021 To do:- Given patient is AA, will discuss starting low-dose ASA at next visit- Pap and NuSwab to be done at next visit- genetic screening: CF/sickle/ MSAFP desired, CF ordered, quad screen between 16-19w [id number] MD Og Knott [address] [address] 09/07/2020 11:52:15 09/10/2020 08:03:07 Routine care [id number] Z34.91 24 yo 2 3 4 5 6 7 8 9 1001 at 22+3 weeks based on LMP and c/w FTUS presents for KAREN appt. Problems 1. Routine OB care - labs WNL and documented in chart. Pt needs PAP exam and sickle/HB screen as was not included in first appointmen t. Pt opts for genetic screening. 2. Moderate risk , as she is AA. Will start 162mg aspirin daily Screening for malignant neoplasm of cervix [id number] Z12.4 [id number] MD Og Knott [address] [address] 10/12/2020 12:06:55 10/16/2020 12:41:57 Routine care 500435685 Z34.91 25 yo female ANIVAL: Jan 08 2021 based on LMP and 1st trimester US PMH: none complicate d by: none Rh: positive IPN labs: normal Pap and GC WNL Genetic screen normal BMI 24: normal; Recommende d total weight gain during 25-35lbs (150-160 lb) Depression screen: negative 1st trimester US showed SIUP, CRL 1.99 cm 2nd trimester US showed SIUP, normal SARAVANAN On ASA 162 mg for moderate risk of developing Pre-E Today: - 28 week labs ordered - Tdap ordered but not administer ed this visit, will administer at f/u visit RTC in 4 weeks Active or passive immunization 150248405 Z23 [id number] MD Og Knott [address] [address] 11/08/2020 17:13:15 11/09/2020 09:26:28 Routine care [id number] Z34.91 25 yo female at 31w2d ANIVAL: Jan 08 2021 based on LMP and 1st trimester US PMH: none complicate d by: none Rh: positive IPN labs: normal Pap and GC WNL Genetic screen normal BMI 24: normal; Recommende d total weight gain during 25-35lbs (150-160 lb) Depression screen: negative 1st trimester US showed SIUP, CRL 1.99 cm 2nd trimester US showed SIUP, normal SARAVANAN On ASA 162 mg for moderate risk of developing Pre-E28 weeks labs normal Tdap: 10/12 Today: - KAREN- ASA 162 mg daily refilled RTC in 2 weeks [id number] MD Og Lee [address] [address] 12/11/2020 15:17:40 12/13/2020 15:57:27 Routine care 328243251 Z34.91 25 yo female at 36w0d ANIVAL: Jan 08 2021 based on LMP and 1st trimester US PMH: none complicate d by: none Rh: positive IPN labs: normal Pap and GC WNL Genetic screen normal BMI 24: normal; Recommende d total weight gain during 25-35lbs (150-160 lb) Depression screen: negative 1st trimester US showed SIUP, CRL 1.99 cm 2nd trimester US showed SIUP, normal SARAVANAN On ASA 162 mg for moderate risk of developing Pre-E28 weeks labs normal Tdap: 10/12 Today: - Vertex scan obtained - GBS Swab obtained- eIOL scheduled for 01/01/2021 at 8:00 PM. Methods of inductions discussed. Epidural requested. RTC in 1 weeks [id number] MD Og Lee [address] [address] 12/18/2020 17:08:10 12/19/2020 13:04:58 Routine care [id number] Z34.91 25 yo female at 37w0d ANIVAL: Jan 08 2021 based on LMP and 1st trimester US PMH: none complicate d by: none Rh: positive IPN labs: normal Pap and GC WNL Genetic screen normal BMI 24: normal; Recommende d total weight gain during 25-35lbs (150-160 lb) Depression screen: negative 1st trimester US showed SIUP, CRL 1.99 cm 2nd trimester US showed SIUP, normal SARAVANAN On ASA 162 mg for moderate risk of developing Pre-E28 weeks labs normal Tdap: 10/12 GBS positive Today:- Wt today 152 from 154, likely d/t low PO intake in the setting of N/V. Will obtain growth scan at next visit if pt continues to lose weight.- Vertex scan obtained - eIOL scheduled for 01/01/2021 at 8:00 PM. Methods of inductions discussed. Epidural requested. RTC in [address] reptococcus carrier [id number] 103 Z22.330 GBS positive at 36 weeks- Will require PCN ppx [id number] Jani Hooks MD [place] [address] [address] 12/25/2020 17:17:30 12/31/2020 13:35:16 Routine care [id number] Z34.91 25 yo female at 38w0d ANIVAL: Jan 08 2021 based on LMP and 1st trimester US PMH: none complicate d by: none Rh: positive IPN labs: normal Pap and GC WNL Genetic screen normal BMI 24: normal; Recommende d total weight gain during 25-35lbs (150-160 lb) Depression screen: negative 1st trimester US showed SIUP, CRL 1.99 cm 2nd trimester US showed SIUP, normal SARAVANAN On ASA 162 mg for moderate risk of developing Pre-E28 weeks labs normal Tdap: 10/12 GBS positive Today: - Vertex scan obtained- SVE: /-3- eIOL scheduled for 01/01/2021 at 8:00 PM. Methods of inductions discussed. Epidural requested. Group B St reptococcus carrier [id number] 103 Z22.330 GBS positive at 36 weeks- Will require PCN ppx Health Concerns Section Related Observation LastModified by Organization Detai ls LastModified Time None Recorded Concern Status LastModified by Organization Details LastModified Time None Recorded Advance Directives Directive None Recorded Payers Encounter Date Sequence Insurance Name Policy Number Policy Garcia Covered Member ID Garcia Member ID Guarantor Name 10/12/2020 1 [facility] PRIOR TO 11/22/2020 (MEDICAID REPLACEMENT - HMO) Vilma Jamie [id number] Vilma Jamie 11/08/2020 1 [facility] PRIOR TO 11/22/2020 (MEDICAID REPLACEMENT - HMO) Vilma Jamie [id number] Vilma Jamie 12/11/2020 1 [facility] ON OR AFTER 11/22/20 (MEDICAID REPLACEMENT - HMO) Vilma Jamie [id number] Vilma Jamie 12/18/2020 1 [facility] ON OR AFTER 11/22/20 (MEDICAID REPLACEMENT - HMO) Vilma Jamie [id number] Vilma Jamie 12/25/2020 1 [facility] ON OR AFTER 11/22/20 (MEDICAID REPLACEMENT - HMO) Vilma Jamie [id number] Vilma Jamie Notes Date Note Type Note Provider Name and Address Organization Details Recorded Time 10/12/2020 text/html 24 y/o @ 27+3 weeks by LMP confirmed by 1st trimester ultrasound presents for KAREN . uncomplicated. Pt denies vaginal bleeding, loss of fluids, contractions and endorses movement. Of note, patient has missed multiple OB appointments due to work or other obligations. Mitchell Doshi CMA null, [place] - [place] 10/23/2020 16:35:48 11/08/2020 text/html 24 y/o @ 31+2 weeks by LMP confirmed by 1st trimester ultrasound presents for KAREN . uncomplicated. Pt denies vaginal bleeding, loss of fluids, contractions and endorses movement. Of note, patient has missed multiple OB appointments due to work or other obligations. Мария Yuan null, [place] - [place] 11/08/2020 18:00:29 12/11/2020 text/html 24 y/o @ 36+0 weeks by LMP confirmed by 1st trimester ultrasound presents for KAREN . uncomplicated. Pt denies vaginal bleeding, loss of fluids, contractions and endorses movement. Of note, patient has missed multiple OB appointments due to work or other obligations. Michelle Oliveros null, [place] - [place] 12/11/2020 18:07:43 12/18/2020 text/html 24 y/o @ 38+0 weeks by LMP confirmed by 1st trimester ultrasound presents for KAREN . uncomplicated. Pt denies vaginal bleeding, loss of fluids, contractions and endorses movement. Of note, patient has missed multiple OB appointments due to work or other obligations. Мария Yuan null, [place] - SI 12/19/2020 13:33:32 12/25/2020 text/html 24 y/o @ 38+0 weeks by LMP confirmed by 1st trimester ultrasound presents for KAREN . uncomplicated. Pt denies vaginal bleeding, loss of fluids, contractions and endorses movement. ROBY LOPEZ MD Attn: Accounting[address] [place], [address], [facility] 01/02/2021 21:42:45 OBGyn Episode Ob Episode Information Episode Created Date Number of Fetuses Patient Bloodtype Patient rh Status Prepregnancy Weight lbs Domestic Partner Domestic Partner Phone Father Name Policy Change Clerk Status 06/15/19 21 1 O Positive 125 CLOSED Fetus Data First Name Last Name Admitted to NICU Weight (g) Sex Living Outcome Pediatric Complications Fetus ID Race Codes Race Delivery Type [phone] [phone] F Full Term [id number] Afric an Ameri can Vaginal Anival Calculation Initial Anival Date Initial Exam Date Initial Exam Provider Initial Ultrasound Date Last Menstrual Period Date Ultra Sound Weeks Gestation 01/08/2021 06/08/2020 [email or web address] 06/08/2020 04/03/2020 8 Eighteen To Twenty Week Anival Update Ultra Sound Date Fundal Height At Umbil Quickening Date Ultra Sound Latest Weeks Gestation Final Anival Confirmed By Final Anival Confirmed Date Final Anival Date Ultra Sound Latest Days Gestation 0 01/09/20 21 0 Pre-christiane Flowsheet Flowsheet Date 06/08/2020 Powell Score Blood Edema Fundus Height Fundus Units Glucose Ketones Leukocytes Nitrite Labor Signs Protein Cervic Dilation Cervic Effacement Cervic Station Type Weight in lbs Pre/Post Dialysis Refused BP Diastolic BP Location Tested BP Systolic BP Type Fetus Heart Rate Present Fetus Movement Comments Flowsheet Date 09/07/2020 Powell Score Blood Edema Fundus Height Fundus Units Glucose Ketones Leukocytes Nitrite Labor Signs Protein Cervic Dilation Cervic Effacement Cervic Station none 19 cm Type Weight in lbs Pre/Post Dialysis Refused Weight 141.704061028915 BP Diastolic BP Location Tested BP Systolic BP Type 54 102 sitting Fetus Heart Rate Present A 158 Present Fetus Movement A Yes Comments Flowsheet Date 10/12/2020 Powell Score Blood Edema Fundus Height Fundus Units Glucose Ketones Leukocytes Nitrite Labor Signs Protein Cervic Dilation Cervic Effacement Cervic Station Type Weight in lbs Pre/Post Dialysis Refused Weight 147.845150715600 BP Diastolic BP Location Tested BP Systolic BP Type 62 110 sitting Fetus Heart Rate Present Fetus Movement Comments Flowsheet Date 11/08/2020 Powell Score Blood Edema Fundus Height Fundus Units Glucose Ketones Leukocytes Nitrite Labor Signs Protein Cervic Dilation Cervic Effacement Cervic Station Type Weight in lbs Pre/Post Dialysis Refused Weight 147.919460246690 BP Diastolic BP Location Tested BP Systolic BP Type 70 108 sitting Fetus Heart Rate Present Fetus Movement Comments Flowsheet Date 12/11/2020 Powell Score Blood Edema Fundus Height Fundus Units Glucose Ketones Leukocytes Nitrite Labor Signs Protein Cervic Dilation Cervic Effacement Cervic Station Type Weight in lbs Pre/Post Dialysis Refused Weight 154.180869531251 BP Diastolic BP Location Tested BP Systolic BP Type 62 110 sitting Fetus Heart Rate Present Fetus Movement Comments Flowsheet Date 12/18/2020 Powell Score Blood Edema Fundus Height Fundus Units Glucose Ketones Leukocytes Nitrite Labor Signs Protein Cervic Dilation Cervic Effacement Cervic Station Type Weight in lbs Pre/Post Dialysis Refused Weight 152.766569447408 BP Diastolic BP Location Tested BP Systolic BP Type 62 106 sitting Fetus Heart Rate Present Fetus Movement Comments Flowsheet Date 12/25/2020 Powell Score Blood Edema Fundus Height Fundus Units Glucose Ketones Leukocytes Nitrite Labor Signs Protein Cervic Dilation Cervic Effacement Cervic Station Type Weight in lbs Pre/Post Dialysis Refused Weight 157.05268139850 BP Diastolic BP Location Tested BP Systolic BP Type 60 112 sitting Fetus Heart Rate Present Fetus Movement Comments Menstrual History Last Menstrual Date Menses Monthly On Bcp Conception Prior Menses Frequency Hcg Plus Date Menarche Onset Age 1104/03/2020 true false Genetic Screening And Infection History Question Response Note Patient's Age Will Be 35 Years Or Older At Estim ated Date of Delivery false Thalassemia (Greenlandic, Kazakh, Mediterranean, Or Background): MCV < 80 false Neural Tube Defect (Meningomyelocele, Spina Bifi da, Or Anencephaly) false Congenital Heart Defect false Down Syndrome false Juarez-Sachs (eg, Baptist, Cajun, Occitan-Calumet) f alse Elba Disease false Sickle Cell Disease Or Trait () false Hemophilia Or Other Blood Disorders false Muscular Dystrophy false Cystic Fibrosis false Hansel's Chorea false Mental Retardation/Autism false If Yes, Was Person Tested For Fragile X? false Other Inherited Genetic Or Chromosomal Disorder false Maternal Metabolic Disorder (eg, Type 1 Diabetes , PKU) false Patient Or Baby's Father Had A Child With Defects Not Listed Above false Recurrent Loss, Or A Stillbirth false Medications (including Suppl ements, Vitamins, Herbs, OTC Drugs), Illicit/Recreational Drugs, Alcohol false If Yes, Agent(s) And Strength/Dosage false Any Other Genetic History false Live With Someone With TB Or Exposed To TB false Patient Or Partner Has History Of Genital Herpes false Rash Or Viral Illness Since Last Menstrual Perio d false History Of STD, Gonorrhea, Chlamydia, HPV, Syphi lis false Other Infection History false History of HIV false History of Hepatitis false Prior GBS-infected child false Plans and Education First Trimester Discussed Date Discussion Item Discussion Note Discuss ed By 06/15/2020 Anticipated course of care [email or web address] 06/15/2020 Alcohol ycrxyvupv77 06/15/2020 Intimate partner violence ms xicvmlw84 06/15/2020 Environmental/work hazards m japdjgkl96 06/15/2020 Screening for aneuploidy msi ouhcqp87 06/15/2020 Nutrition counseling ; special diet; dietary precautions (mercury, listeriosis) vyxxmfjnv65 06/15/2020 Childbirth classes/hospital facilities evshycebv45 06/15/2020 HIV and other routine tests jgnbbezsn85 06/15/2020 Risk factors identif ied by history wgylikeac84 06/15/2020 Weight gain counseling msidd iqui29 06/15/2020 Exercise mzkzomxrw34 06/15/2020 Teratogens oghuczatd74 06/15/2020 Use of any medicatio ns (including supplements, vitamins, herbs, or OTC drugs) zfetmjyne88 06/15/2020 jcxcgbnha07 06/15/2020 Sexual activity lnonlyrel98 06/15/2020 Tobacco/smoking cess ation counseling (ask, advise, assess, assist, and arrange) ohjcktbgs04 06/15/2020 Illicit/recreational drugs m uppyucgj09 06/15/2020 Dental care ayzmesxfd16 06/15/2020 Travel 06/15/2020 Seat belt use kpblmjseb32 06/15/2020 Indications for ultrasonography vsoyumfrp22 06/15/2020 Avoidance of saunas or hot tubs rkirawndd37 06/15/2020 Toxoplasmosis precautions (cats/raw meat) lscdhaory44 Second Trimester Discussed Date Discussion Item Discussion Note Discuss ed By 11/08/2020 Selecting a care provider lklwqlujt72 11/08/[address] anning/tubal sterilization troirwipv16 11/08/2020 Depression screening (when indicated) qcglglnyk35 11/08/2020 Abnormal lab values msiddiqu i29 11/08/2020 Signs and symptoms of labor alllbjmkd10 11/08/2020 Intimate partner violence ms msdkxse79 11/08/2020 Tobacco/smoking cess ation counseling (ask, advise, assess, assist, and arrange) lgjjuadiu91 Third Trimester Discussed Date Discussion Item Discussion Note Discuss ed By 11/08/2020 Intimate partner violence ms iohkwtd94 11/08/2020 Anesthesia plans smbmpyvxr17 11/08/2020 movement monitoring ms wyvbexo72 11/08/2020 ligafecsp88 11/08/2020 Labor signs yzdhkyfsi68 11/08/2020 depression msiddi qui29 11/08/2020 Tobacco/smoking cess ation counseling (ask, advise, assess, assist, and arrange) fwiteuvjn00 11/08/2020 Signs and symptoms of preeclampsia wbxuibonu65 Delivery Information Delivery Date Delivery Type Labor Anesthesia Weeks Gestation Incision Type Labor Labor Length Hrs Delivered By Post Complications Tubal Sterilization Discharge Date Comments 1 38.4 Discharge Information Feeding Method Contraceptive Method Maternal HG B and HCT Levels
[2024-10-26 09:17] VITALS: BP 118/75; PULSE 96; RESP 14; TEMP 37.1; O2SAT 100
[2024-10-26 09:27] VITALS: PULSE 95; O2SAT 100
[2024-10-26] MEDS: LORazepam (*CRX) 0.5 MG TABLET PO (09:27)
--- OUTSIDE RECORDS SUMMARY | 2024-10-26 09:42 | XMS_ITS | Clinical Summary ---
Author Organization [facility] Address [address] [place] [address] Care Team Providers Care Roll Weigher Name Role Phone Unavailable Primary Care Provider Unavailabl e Source Comments [facility],non-owned Affiliates and Associated Physician Practices is amultiple site organization consisting of ambulatory clinics and hospital sitesin [place], [place], [place] and [place]. This disclosure is being madepursuant to the Care Everywhere program and may not contain all information available regarding this patient. 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
--- OUTSIDE RECORDS SUMMARY | 2024-10-26 09:42 | XMS_ITS | Referral Summary ---
Author Organization [facility] Address [address] [place] [address] Care Team Providers Care Classification And Treatment Director Name Role Phone No, Physician Primary Care Provider [phone] Allergies No known active allergies Medications No known medications Active Problems No known active problems Social History Tobacco Use Types Packs/Day Years Used Date Smoking Tobacco: Never Smokeless Tobacco: Never Alcohol Use Standard Drinks/Week Comments Not Currently 0 (1 standard drink = 0.6 oz pur e alcohol) Personal Safety Answer Date Recorded Getting School Help Needed Not on file 05/21 Comments Unknown Sex and Gender Information Value Date Recorded Sex Assigned at Not on file 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 Gender Identity Not on file Sexual Orientation Not on file Last Filed Vital Signs Vital Sign Reading Time Taken Comments Blood Pressure 108/68 05/28/2020 2:36 PM CHINESE TEACHER Pulse 92 01/27/2017 5:01 PM CDT Temperature 37 C (98.6 F) 01/27/2017 5:01 PM CDT Respiratory Rate - - Oxygen Saturation 97% 01/27/2017 5:01 PM CDT Inhaled Oxygen Concentration - - Weight 59.1 kg (130 lb 6.4 oz) 05/28/2020 2:36 P M CHINESE TEACHER Height 160 cm (5' 3) 01/27/2017 5:01 PM CDT Body Mass Index 23.1 01/27/2017 5:01 PM CDT Plan of Treatment Not on file Insurance [facility] Care Teams Classification And Treatment Director Relationship Specialty Start Date End Date No, Physician PCP - General 05/01/20
--- OUTSIDE RECORDS SUMMARY | 2024-10-26 09:42 | XMS_ITS | Clinical Summary ---
Author Organization [facility] at [facility] Office Building Address [address] [place] [address] Care Team Providers Care General Lot Attendant Name Role Phone No, Physician Primary Care Provider [phone] Allergies No known active allergies Medications No known medications Active Problems No known active problems Surgical History Surgery Date Site/Laterality Comments NO PAST SURGERIES Family History Medical History Relation Name Comments No Known Problems Father Hypertension Maternal Grandmother Hypertension Mother Relation Name Status Comments Father Maternal Grandmother Mother Social History Tobacco Use Types Packs/Day Years [...] on file 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 Gender Identity Not on file Sexual Orientation Not on file Obstetrics History Para Term AB IAB SAB Ectopic Multiple Livin g Live Births 2 1 1 1 1 Date Outcome GA Total Labor Labor/2nd/3rd Weight Sex Type Anes PTL Eli A1 A5 Name Clin Term 38w0 d 3.43 kg (7 lb 9 oz) Vag-S pont Living Last Filed Vital Signs Vital Sign Reading Time Taken Comments Blood Pressure 108/68 05/28/2020 2:36 PM CERTIFIED CONTROL SYSTEMS TECHNICIAN Pulse 92 01/27/2017 5:01 PM CDT Temperature 37 C (98.6 F) 01/27/2017 5:01 PM CDT Respiratory Rate - - Oxygen Saturation 97% 01/27/2017 5:01 PM CDT Inhaled Oxygen Concentration - - Weight 59.1 kg (130 lb 6.4 oz) 05/28/2020 2:36 P M CERTIFIED CONTROL SYSTEMS TECHNICIAN Height 160 cm (5' 3) 01/27/2017 5:01 PM CDT Body Mass Index 23.1 01/27/2017 5:01 PM CDT Plan of Treatment Health Maintenance Due Date Last Done Comments Cervical Cancer Screening 1994 Depression Screening 1994 Hepatitis C Screening 1994 Varicella Vaccines (1 of 2 - 13+ 2-dose series) 09/24/2007 HPV Vaccines (3 - 2-dose series) 03/20/2010 11/27/2009, 09/18/2009 Regular Well Visit/Exam 18-64 2012 Covid-19 Vaccine (2 - season) 2024 09/10/2021 Influenza Vaccine (Season Ended) 2025 04/10/2009 DTaP/Tdap/Td Vaccine (8 - Td or Tdap) 10/12/2030 10/12/2020, 09/18/2009, 01/24/2000, Additional history exists Hepatitis B Screening Completed 08/03/1995 , 02/16/1995, 1994 Pneumococcal vaccine <65 Aged Out No longer eligible based on patient's age to complete this topic Insurance [facility] Care Teams General Lot Attendant Relationship Specialty Start Date End Date No, Physician PCP - General 05/01/20
[2024-10-26 10:50] VITALS: BP 118/75; PULSE 72; RESP 16
--- NOTE | 2024-10-26 14:01 | ED_ITS ---
HPI - Chest Pain General Chief Complaint: Chest Pain Stated Complaint: chest tightness Time Seen by Provider: 10/26/24 08:59 History of Present Illness HPI narrative: Patient presenting here with chest tightness, her sister just and for last 2-3 days she has been crying with chest tightness. She denies wanting to hurt herself or anyone else Related Data Allergies Allergy/AdvReac Type Severity Reaction Status Date / Time No Known Allergies Allergy Verified 02/11/24 09:56 Review of Systems Review of Systems: All systems reviewed & are unremarkable except as noted in HPI and below PMFSH Past Medical History Medical History Healthy female adult Social History Social History Smoking status: Never smoker Exam Narrative: EXAMINATION OF ORGAN SYSTEMS/BODY AREAS: Constitutional: Vital signs per nursing GENERAL: Tearful HEAD: Normal with no signs of head trauma. EYES: EOMI, conjunctiva normal ENT: Hearing grossly intact LUNGS: Nonlabored breathing. HEART: [Regular rate and rhythm] ABD: [Soft], [nontender to palpation] EXT: Normal range of motion SKIN: [No rashes or lesions.] NEURO: [Alert and oriented x 3. No gross focal sensory or strength deficits.] PSYCH: Tearful but denies SI/HI Course Vital Signs Vital signs: Vital Signs Temperature 98.7 F 10/26/24 09:17 Pulse Rate 96 10/26/24 09:17 Respiratory Rate 14 10/26/24 09:17 Blood Pressure 118/75 10/26/24 09:17 Pulse Oximetry 100 10/26/24 09:17 Oxygen Delivery Room Air 10/26/24 09:17 Temperature 98.7 F 10/26/24 09:17 Pulse Rate 72 10/26/24 10:50 Respiratory Rate 16 10/26/24 10:50 Blood Pressure 118/75 10/26/24 10:50 Pulse Oximetry 100 10/26/24 09:27 Oxygen Delivery Room Air 10/26/24 09:27 MDM - Chest Pain MDM Narrative Medical decision making narrative: Patient presenting here with symptoms consistent with anxiety and grief reaction. On exam patient is tearful, crying. I will obtain EKG and chest xray to rule out arrhythmia/ischemia, pneumothorax, or other cause of chest discomfort/shortness of breath. Chest x-ray on my independent interpretation does not show any acute abnormality, no pneumothorax or consolidation. EKG - 12-Lead: Performed at 0904. Interpreted by me. [Sinus rhythm]. Rate 87. [Normal] axis. SD-interval [normal]. QRS duration [normal]. QTc [normal]. [No ST segment elevation or depression]. [T-wave normal]. Impression: No EKG evidence of acute ischemia or dysrhythmia. I did give her moderate hepatic. On reevaluation patient is feeling better, resting comfortably, vital signs now stable. I do feel patient is stable for discharge home at this time with followup to their doctor and mental health services, and return here if symptoms return or worsen. Agreeable to outpatient management. Discharge Plan Discharge Clinical Impression: Grief, Atypical chest pain Patient Disposition: Home Condition: Stable Instructions: Grief and Loss (ED), Noncardiac Chest Pain (ED) Additional Instructions: Please follow up with your doctor and with mental health services; you can always return for any further issues. Patient Language: Thai Prescriptions: No Action ibuprofen 800 mg tablet 800 mg PO TID PRN (Reason: pain) 7 Days Qty: 21 0RF acetaminophen 500 mg tablet 1,000 mg PO TID PRN (Reason: mat) 7 Days Qty: 42 0RF methocarbamol 750 mg tablet 1,500 mg PO TID Qty: 35 0RF ibuprofen 800 mg tablet 800 mg PO TID PRN (Reason: pain) Qty: 30 0RF Follow-up/Referrals: [facility] [Outside] - 2 Days UNKNOWN,DOCTOR [Primary Care Provider] - Stand Alone Forms: Work/School Release IP
== END 2024-10-26 10:52 | disposition home or self-care (01) ==
PROVIDERS: Emergency Provider Emergency Medicine
DX: R07.89 Other chest pain (principal); F43.22 Adjustment disorder with anxiety
CPT/HCPCS: 71045; 93005; 99284; A9270

== ENCOUNTER 2025-05-22 07:38 | Emergency (ER) | payer OTHER, SELFPAY ==
[2025-05-22] VITALS (17 sets, daily range): BP systolic 99–127; BP diastolic 65–88; PULSE 103–104; RESP 16–20; TEMP 36.8; O2SAT 93–100
--- NOTE | ~2025-05-22 | XR_ITS ---
EXAMINATION: XR chest 1V portable DATE: 05/22/2025 09:04 INDICATION: Cough and shortness of breath TECHNIQUE: frontal view of the chest was obtained. COMPARISON: Chest radiograph dated 10/26/2024 FINDINGS: The lungs remain clear with no focal airspace opacities, pulmonary edema, pleural effusion or pneumothorax. The cardiomediastinal silhouette is normal. Bilateral breast implants. Mild thoracic dextrocurvature. IMPRESSION: 1. No acute cardiopulmonary disease. Reviewed, dictated and finalized at location A. ENTICE TECHNICIAN
--- OUTSIDE RECORDS SUMMARY | 2025-05-22 07:40 | XMS_ITS | Clinical Summary ---
Author Organization [facility] Address [address] [place] [address] Care Team Providers Care Hospice Manager Name Role Phone Unavailable Primary Care Provider Unavailabl e Source Comments [facility],non-owned Affiliates and Associated Physician Practices is amultiple site organization consisting of ambulatory clinics and hospital sitesin [place], [place], [place] and [place]. This disclosure is being madepursuant to the Care Everywhere program and may not contain all information available regarding this patient. 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
--- OUTSIDE RECORDS SUMMARY | 2025-05-22 07:40 | XMS_ITS | Clinical Summary ---
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 Gender Identity Not on file Sexual [...] Comments Blood Pressure 108/68 05/28/2020 2:36 PM COMPUTER DISCOVERY TEACHER Pulse 92 01/27/2017 5:01 PM CDT Temperature 37 C (98.6 F) 01/27/2017 5:01 PM CDT Respiratory Rate - - Oxygen Saturation 97% 01/27/2017 5:01 PM CDT Inhaled Oxygen Concentration - - Weight 59.1 kg (130 lb 6.4 oz) 05/28/2020 2:36 P M COMPUTER DISCOVERY TEACHER Height 160 cm (5' 3) 01/27/2017 5:01 PM CDT Body Mass Index 23.1 01/27/2017 5:01 PM CDT Plan of Treatment Not on file Insurance [facility] Care Teams Nocturnist Physician Relationship Specialty Start Date End Date No, Physician PCP - General 05/01/20
--- OUTSIDE RECORDS SUMMARY | 2025-05-22 08:23 | XMS_ITS | Clinical Summary ---
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 Gender Identity Not on file Sexual Orientation [...] Comments Blood Pressure 108/68 05/28/2020 2:36 PM PRIVATE BANKER Pulse 92 01/27/2017 5:01 PM CDT Temperature 37 C (98.6 F) 01/27/2017 5:01 PM CDT Respiratory Rate - - Oxygen Saturation 97% 01/27/2017 5:01 PM CDT Inhaled Oxygen Concentration - - Weight 59.1 kg (130 lb 6.4 oz) 05/28/2020 2:36 P M PRIVATE BANKER Height 160 cm (5' 3) 01/27/2017 5:01 PM CDT Body Mass Index 23.1 01/27/2017 5:01 PM CDT Plan of Treatment Not on file Insurance [facility] Care Teams Pipeline Welder Relationship Specialty Start Date End Date No, Physician PCP - General 05/01/20
--- OUTSIDE RECORDS SUMMARY | 2025-05-22 08:23 | XMS_ITS | Clinical Summary ---
Author Organization [facility] Address [address] [place] [address] Care Team Providers Care Senior Ux Designer Name Role Phone Unavailable Primary Care Provider Unavailabl e Source Comments [facility],non-owned Affiliates and Associated Physician Practices is amultiple site organization consisting of ambulatory clinics and hospital sitesin [place], [place], [place] and [place]. This disclosure is being madepursuant to the Care Everywhere program and may not contain all information available regarding this patient. 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
[2025-05-22 08:48] LABS: Influenza A QL RT-PCR Negative (Negative); Influenza B QL RT-PCR Negative (Negative); RSV RNA, RT-PCR Negative (Negative); SARS-CoV-2 RNA PCR Negative (Negative)
[2025-05-22 09:13] LABS: Strep Group A RT-PCR NOT DETECTED (Negative)
--- NOTE | 2025-05-22 09:27 | ED.GENADULT ---
HPI - General Adult General Chief complaint: Upper Respiratory Infection Stated complaint: SOB, cough Time Seen by Provider: 05/22/25 07:55 History of Present Illness HPI narrative: 29-year-old female present to the emergency department for evaluation for cough and congestive symptoms. Patient reports symptoms started yesterday. Patient also does have some sore throat. Patient denies any known exposures. Patient denies any significant past medical history. Patient is resting comfortably time of evaluation. Related Data Allergies Allergy/AdvReac Type Severity Reaction Status Date / Time No Known Allergies Allergy Verified 05/22/25 07:54 Review of Systems Review of Systems: All systems reviewed & are unremarkable except as noted in HPI and below PMFSH Past Medical History Medical History Healthy female adult Social History Social History Smoking status: Never smoker Exam Narrative: APPEARANCE: Well appearing, no pain, no distress, well-nourished. HEAD: normocephalic, atraumatic. EYES: PERRLA/EOMI, conjunctivae clear. NOSE: Normal no drainage EARS:TMS clear with good light reflex. THROAT: Pharynx clear, no exudate. NECK: Supple. No adenopathy, no masses. RESPIRATORY: Airway patent, respirations nonlabored. Clear to auscultation bilaterally, no rales, rhonchi, wheezing. CARDIOVASCULAR: Regular rate and rhythm without murmurs rubs or gallops. ABDOMINAL: Soft, nontender, nondistended, normal bowel sounds MUSCULOSKELETAL: Moves all extremities. Strength/ROM intact, No edema, No calf tenderness. NEURO: Alert. Cranial nerves II through XII intact. Good gait. Good coordination SKIN: Warm, dry. Normal Color Course Vital Signs Vital signs: Vital Signs Temperature 98.2 F 05/22/25 07:46 Pulse Rate 103 H 05/22/25 07:46 Respiratory Rate 20 05/22/25 07:46 Blood Pressure 120/83 05/22/25 07:46 Pulse Oximetry 100 05/22/25 07:46 Oxygen Delivery Room Air 05/22/25 07:46 Temperature 98.2 F 05/22/25 07:47 Pulse Rate 104 H 05/22/25 07:47 Respiratory Rate 16 05/22/25 07:47 Blood Pressure 110/86 05/22/25 09:31 Pulse Oximetry 98 05/22/25 09:30 Oxygen Delivery Room Air 05/22/25 07:52 MDM MDM Narrative Medical decision making narrative: 29-year-old female presents to the emergency department for evaluation for sore throat cough congestion. Patient was negative for COVID flu RSV. Patient was negative for strep patient's x-ray showed no acute cardiopulmonary abnormality. Patient will be treated symptomatically for upper respiratory infection. Patient will be discharged home with Tessalon Perles and albuterol inhaler. Differential Diagnosis Differential Diagnosis: COVID flu RSV strep throat Lab Data Labs: Lab Results 05/22/25 05/22/25 Range/Units 08:06 08:45 Influenza A (RT-PCR) Negative (Negative) Influenza B (RT-PCR) Negative (Negative) RSV (RT-PCR) Negative (Negative) SARS-CoV-2 RNA (RT-PCR) Negative (Negative) Group A Strep (PCR) Not detected (Negative) Imaging Data Radiologist's impression: ITS Impressions Chest X-Ray 05/22/25 09:05 IMPRESSION: 1. No acute cardiopulmonary disease. Discharge Plan Discharge Clinical Impression: Acute viral syndrome Patient Disposition: Home Condition: Stable Instructions: Antibiotic Form, Viral Syndrome (ED) Additional Instructions: Tylenol and ibuprofen for fever and for body aches. Albuterol inhaler as needed for shortness of breath. Tessalon Perles for cough and congestion. Have close follow-up with your primary care physician. If you have any worsening symptoms then please call or return to the emergency department. Patient Language: Wallisian Prescriptions: New benzonatate 100 mg capsule 100 mg PO TID PRN (Reason: cough) Qty: 14 0RF albuterol sulfate 90 mcg/actuation HFA aerosol inhaler 1 puff inhalation QID Qty: 6.7 0RF No Action ibuprofen 800 mg tablet 800 mg PO TID PRN (Reason: pain) 7 Days Qty: 21 0RF acetaminophen 500 mg tablet 1,000 mg PO TID PRN (Reason: mat) 7 Days Qty: 42 0RF methocarbamol 750 mg tablet 1,500 mg PO TID Qty: 35 0RF ibuprofen 800 mg tablet 800 mg PO TID PRN (Reason: pain) Qty: 30 0RF Follow-up/Referrals: PHYSICIAN,[employer]PER[employer] [Primary Care Provider, Internal Medicine]
== END 2025-05-22 09:57 | disposition home or self-care (01) ==
PROVIDERS: Emergency Provider Emergency Medicine
DX: B34.9 Viral infection, unspecified (principal); Z20.822 Contact with and (suspected) exposure to COVID-19
CPT/HCPCS: 71045; 87637; 87651; 99283